=== PATIENT | female | born 1985 | race African-American/Black ===

== ENCOUNTER 2020-09-03 21:18 | Emergency (ER) | payer SELFPAY | END 2020-09-03 23:32 | disposition left against medical advice (07) | LOC: ERS 21:18 | DX: Z53.21 Procedure and treatment not carried out due to patient leaving prior to being seen by health care provider (principal) ==

== ENCOUNTER 2021-04-08 02:44 | Emergency (ER) | payer SELFPAY ==
[2021-04-08] MEDS ORDERED: Lidocaine 1% PF 5 ML VIAL ONE (03:36)
== END 2021-04-08 05:08 | disposition home or self-care (01) ==
LOC: ERS 02:44
DX: S01.511A Laceration without foreign body of lip, initial encounter (principal); W10.9XXA Fall (on) (from) unspecified stairs and steps, initial encounter
CPT/HCPCS: 12011

== ENCOUNTER 2021-04-10 17:05 | Emergency (ER) | payer SELFPAY | END 2021-04-10 17:27 | disposition home or self-care (01) | LOC: ERS 17:05 | DX: Z48.00 Encounter for change or removal of nonsurgical wound dressing (principal); S01.511D Laceration without foreign body of lip, subsequent encounter | CPT/HCPCS: 99282 ==

== ENCOUNTER 2021-04-19 20:52 | Emergency (ER) | payer SELFPAY | END 2021-04-19 21:32 | disposition home or self-care (01) | LOC: ERS 20:52 | DX: S01.511D Laceration without foreign body of lip, subsequent encounter (principal) ==